=== PATIENT | female | born 1970 | race American Indian/Alaskan Native ===

== ENCOUNTER 2018-05-21 06:43 | Observation (INO) | payer OTHER ==
[2018-05-21 09:17] LABS: Bilirubin,Urine NEG (Negative); Blood,Urine NEG (Negative); Color,Urine Yellow (Yellow); Urobilinogen,Urine < 2.0 mg/dL (<2.0)
[2018-05-21 09:39] LABS: Basophils # (Auto) 0.1 K/mm3 (0.0-0.1); Basophils % (Auto) 1.3 % (0.0-1.8); Eosinophils # (Auto) 0.1 K/mm3 (0.0-0.4); Hematocrit 41.2 % (30.3-42.9); Hemoglobin 13.6 gm/dl (10.1-14.3); Lymphocytes # (Auto) 3.1 K/mm3 (1.2-5.4); Lymphocytes % (Auto) 43.6 % (13.4-35.0); Mean Corpuscular HGB Conc 33 % (30-34); Mean Corpuscular Hemoglobin 28 pg (28-32); Mean Corpuscular Volume 84 fl (79-97); Monocytes # (Auto) 0.5 K/mm3 (0.0-0.8); Platelet Count 209 K/mm3 (140-440); Red Blood Count 4.88 M/mm3 (3.65-5.03); Red Cell Distribution Width 13.7 % (13.2-15.2)
[2018-05-21 09:50] LABS: INR 0.87 (0.87-1.13)
[2018-05-21 09:51] LABS: Partial Thromboplastin Time 22.4 Sec. (24.2-36.6)
--- NOTE | 2018-05-21 10:01 | XRay Report ---
Single view chest: History: Chest pain. Findings: Normal cardiomediastinal silhouette the trachea is midline. No consolidation, pneumothorax or pleural effusion. Impression: No acute cardiopulmonary findings.
--- NOTE | 2018-05-21 10:18 | Emergency Department Report ---
ED Chest Pain HPI - General Chief Complaint: Chest Pain Stated Complaint: CP Time Seen by Provider: 05/21/18 08:58 Source: patient Mode of arrival: Ambulatory Limitations: No Limitations - History of Present Illness Initial Comments: This is a 47 year old type II diabetic female who presents for evaluation of anterior/substernal chest pressure. She states she has occasional shortness of breath and nausea but no vomiting. She denies cough. She is not currently having chest pain nor shortness of breath. She states that she has not been worked up for coronary artery disease in the past. She also has a history of hypertension. She does not smoke. She did not mention being out of her medication. She is not currently on a statin. MD Complaint: chest pain -: Gradual, days(s) Onset: during rest Pain Location: substernal Pain Radiation: none Quality: pressure Consistency: intermittent Improves With: nothing Worsens With: nothing re: nausea. denies: vomting, diaphoresis, dyspnea, sense of impending doom Other Symptoms: denies: cough, fever, syncope, rash, acid taste in mouth, leg swelling, palpitations, burping Treatments Prior to Arrival: none Aspirin use within the Past 7 Days: (0) No - Related Data On Oral Contraceptives: No Home Medications Medication Instructions Recorded Confirmed Last Taken Lisinopril [Zestril] 20 mg PO QDAY 02/04/16 02/04/16 Unknown metFORMIN [Glucophage] 1,000 mg PO BID 02/04/16 02/04/16 02/04/16 Amlodipine Besylate [Norvasc] 5 mg PO QDAY 05/21/18 05/21/18 Unknown glipiZIDE [Glipizide] 10 mg PO QDAY 05/21/18 05/21/18 Unknown Allergies Allergy/AdvReac Type Severity Reaction Status Date / Time No Known Allergies Allergy Verified 05/21/18 09:58 Heart Score - HEART Score History: Moderately suspicious EKG: Non-specific Age: 45-65 Risk factors: 1-2 risk factors Troponin: < normal limit HEART Score: 4 - Critical Actions Critical Actions: 4-6 pts:12-16.6% risk of adverse cardiac event. Should be admitted ED Review of Systems ROS: Stated complaint: CP Other details as noted in HPI Constitutional: denies: chills, fever Eyes: denies: eye pain, eye discharge, vision change ENT: denies: ear pain, throat pain Respiratory: shortness of breath. denies: cough, wheezing Cardiovascular: chest pain. denies: palpitations Endocrine: no symptoms reported Gastrointestinal: nausea. denies: abdominal pain, vomiting, diarrhea Genitourinary: denies: urgency, dysuria, discharge Musculoskeletal: denies: back pain, joint swelling, arthralgia Skin: denies: rash, lesions Neurological: denies: headache, weakness, paresthesias Psychiatric: denies: anxiety, depression Hematological/Lymphatic: denies: easy bleeding, easy bruising ED Past Medical Hx - Past Medical History Hx Hypertension: Yes Hx Diabetes: Yes Hx Asthma: Yes - Surgical History Past Surgical History?: Yes Additional Surgical History: partial hysterectomy-2004. x 3 - Social History Smoking Status: Never Smoker Substance Use Type: None - Medications Home Medications: Home Medications Medication Instructions Recorded Confirmed Last Taken Type Lisinopril [Zestril] 20 mg PO QDAY 02/04/16 02/04/16 Unknown History metFORMIN [Glucophage] 1,000 mg PO BID 02/04/16 02/04/16 02/04/16 History Amlodipine Besylate [Norvasc] 5 mg PO QDAY 05/21/18 05/21/18 Unknown History glipiZIDE [Glipizide] 10 mg PO QDAY 05/21/18 05/21/18 Unknown History ED Physical Exam - General Limitations: No Limitations General appearance: alert, in no apparent distress - Head Head exam: Present: atraumatic, normocephalic - Eye Eye exam: Present: normal appearance - ENT ENT exam: Present: mucous membranes moist, other (somewhat cushingoid type faces ) - Neck Neck exam: Present: normal inspection. Absent: tenderness, meningismus - Respiratory Respiratory exam: Present: normal lung sounds bilaterally. Absent: respiratory distress - Cardiovascular Cardiovascular Exam: Present: regular rate, normal rhythm. Absent: systolic murmur, diastolic murmur, rubs, gallop - GI/Abdominal GI/Abdominal exam: Present: soft, normal bowel sounds. Absent: distended, tenderness, guarding, rebound, rigid - Extremities Exam Extremities exam: Present: normal inspection, full ROM, normal capillary refill. Absent: tenderness, pedal edema, joint swelling, calf tenderness - Back Exam Back exam: Present: normal inspection - Neurological Exam Neurological exam: Present: alert, oriented X3, CN II-XII intact. Absent: motor sensory deficit - Psychiatric Psychiatric exam: Present: normal affect, normal mood - Skin Skin exam: Present: warm, dry, intact, normal color. Absent: rash ED Course Vital Signs 05/21/18 05/21/18 05/21/18 07:04 08:18 08:32 Temperature 98.5 F 98.1 F Pulse Rate 99 H 78 Respiratory 18 16 17 Rate Blood Pressure 121/81 Blood Pressure 143/87 [Right] O2 Sat by Pulse 98 98 Oximetry 05/21/18 05/21/18 09:43 10:00 Temperature Pulse Rate 77 78 Respiratory 11 L Rate Blood Pressure 131/80 Blood Pressure [Right] O2 Sat by Pulse 98 Oximetry - Reevaluation(s) Reevaluation #1: Discussed with Dr. Julio had admitted to telemetry in stable condition. 05/21/18 12:19 Reevaluation #2: Given fluids and IV insulin 05/21/18 12:21 KEV score - Kev Score Age > 65: (0) No Aspirin use within the Past 7 Days: (0) No 3 or more CAD Risk Factors: (1) Yes 2 or more Angina events in past 24 hrs: (0) No Known CAD with more than 50% Stenosis: (0) No Elevated Cardiac Markers: (0) No ST Deviation Greater than 0.5mm: (0) No KEV Score: 1 ED Medical Decision Making - Lab Data Result diagrams: 05/21/18 09:19 05/21/18 09:19 Laboratory Results - last 24 hr 05/21/18 05/21/18 05/21/18 09:19 09:19 Unknown WBC 7.1 RBC 4.88 Hgb 13.6 Hct 41.2 MCV 84 MCH 28 MCHC 33 RDW 13.7 Plt Count 209 Lymph % (Auto) 43.6 H [place] % (Auto) 7.0 Eos % (Auto) 2.0 Baso % (Auto) 1.3 Lymph # 3.1 [place] # 0.5 Eos # 0.1 Baso # 0.1 Seg Neutrophils % 46.1 Seg Neutrophils # 3.3 PT 12.2 INR 0.87 APTT 22.4 L D-Dimer 225.49 Urine Color Yellow Urine Turbidity Clear Urine pH 5.0 Ur Specific [place] 1.028 Urine Protein 30 mg/dl Urine Glucose (UA) >=500 Urine Ketones Tr Urine Blood Neg Urine Nitrite Neg Urine Bilirubin Neg Urine Urobilinogen < 2.0 Ur Leukocyte Esterase Sm Urine WBC (Auto) 4.0 Urine RBC (Auto) 4.0 U Epithel Cells (Auto) 2.0 - EKG Data -: EKG Interpreted by Me EKG shows normal: sinus rhythm, intervals, QRS complexes, ST-T waves - EKG Data When compared to previous EKG there are: no significant change Interpretation: other (left axis deviation) - Radiology Data Radiology results: report reviewed (chest x-ray no acute process) Critical care attestation.: If time is entered above; I have spent that time in minutes in the direct care of this critically ill patient, excluding procedure time. ED Disposition Clinical Impression: Chest pain Qualifiers: Chest pain type: unspecified Qualified Code(s): R07.9 - Chest pain, unspecified Hyperglycemia due to type 2 diabetes mellitus Qualifiers: Diabetes mellitus terminal superintendent insulin use: without terminal superintendent use Qualified Code(s ): E11.65 - Type 2 diabetes mellitus with hyperglycemia Disposition: 09 OP ADMIT IP TO THIS HOSP Is pt being admited?: Yes Does the pt Need Aspirin: Yes Condition: Stable Instructions: Chest Pain (ED), Diabetes Mellitus Type 2 in Adults (ED) Referrals: PRIMARY CARE, [Primary Care Provider] - 3-5 Days Time of Disposition: 12:21
[2018-05-21 10:35] LABS: Amphetamine Screen,Urine PRESUMPTIVE NEGATIVE; Benzodiazepines Screen,Urine PRESUMPTIVE NEGATIVE; Cannabinoid Screen,Urine PRESUMPTIVE NEGATIVE; Cocaine Screen,Urine PRESUMPTIVE NEGATIVE; Methadone Screen,Urine PRESUMPTIVE NEGATIVE; Opiate Screen,Urine PRESUMPTIVE NEGATIVE
[2018-05-21 10:37] LABS: Alanine Aminotransferase 20 units/L (7-56); Albumin 3.8 g/dL (3.9-5); BUN/Creatinine Ratio 21; Blood Urea Nitrogen 15 mg/dL (7-17); Calcium 9.7 mg/dL (8.4-10.2); Hemolysis Index 7
[2018-05-21 10:55] LABS: Bilirubin,Direct < 0.2 mg/dL (0-0.2)
[2018-05-21] MEDS ORDERED: NACL 0.9% 1000 ML 1,000 ML IV ONE (12:10)
[2018-05-21] MEDS ORDERED: HumuLIN R IV ONE (12:10)
[2018-05-21] MEDS ORDERED: BABY ASPIRIN PO ONE (12:21)
--- NOTE | 2018-05-22 01:27 | Event Note ---
Date: 05/21/18 See dictated history and physical in the reports Chest pain r/o NH
[2018-05-22] MEDS ORDERED: SODIUM CHLORIDE FLUSH SYRINGE 10 ML IV PRN (01:32)
[2018-05-22] MEDS ORDERED: PERCOCET 5/325 PO PRN (01:32)
[2018-05-22] MEDS ORDERED: TYLENOL PO PRN (01:32)
[2018-05-22] MEDS ORDERED: ZOFRAN IV PRN (01:32)
[2018-05-22] MEDS ORDERED: MORPHINE IV PRN (01:32)
--- NOTE | 2018-05-22 01:51 | History and Physical Report ---
CHIEF COMPLAINT: Left-sided chest pain for 3 days. HISTORY OF PRESENT ILLNESS: A 47-year-old female with type 2 diabetes, hypertension, who comes in for substernal chest pressure for the last 3 days. No nausea, no vomiting, no diaphoresis. No shortness of breath. No radiation. No recent travel. Pain is about 6 on a scale of 1-10, intermittent in nature. No exacerbating or relieving factors. No cough, no sputum. PAST MEDICAL HISTORY: Significant for hypertension, diabetes, or asthma. PAST SURGICAL HISTORY: Partial hysterectomy and x 3. SOCIAL HISTORY: She does not smoke. No alcohol, no recreational drugs. FAMILY HISTORY: Hypertension. HOME MEDICATIONS: Lisinopril 20 mg once a day, metformin 1000 mg twice a day, amlodipine 5 mg once a day, glipizide 10 mg once a day. REVIEW OF SYSTEMS: Significant for left-sided chest pain. No shortness of breath. Otherwise, review of systems negative. A 14-point review of systems done. PHYSICAL EXAMINATION: GENERAL: A middle-aged female, cooperative during examination. VITAL SIGNS: Vital signs significant for blood pressure of 159/88, pulse is 81, respiratory rate is 19, O2 sats are 98%. HEENT: Unremarkable. Pupils equal and reactive. NECK: Supple, no lymphadenopathy, no thyromegaly. LUNGS: Clear to auscultation and percussion. Good air entry. CARDIOVASCULAR: S1, S2 heard. No gallop, no murmur, no rub. Apical impulse in left fifth intercostal space and midclavicular line. ABDOMEN: Soft and benign. No hepatosplenomegaly. No guarding, no rigidity. Hernial orifices are normal. EXTREMITIES: Good pedal pulses. No pedal edema. CENTRAL NERVOUS SYSTEM: Alert and oriented x 4, nonfocal exam. SKIN: Normal. LABORATORY DATA: Significant for normal CBC. Sodium is 136, slightly low; bicarbonate is 21, slightly low. Glucose is 345. Albumin 3.8. Urine is normal. Drug screen is negative. EKG, normal sinus rhythm. EKG, left axis deviation, no significant ST-T wave changes. Chest x-ray, no acute process. ASSESSMENT AND PLAN: 1. Chest pain, rule out myocardial infarction, chest pain protocol. Lexiscan in the morning troponins. 2. Type 2 diabetes, continue oral hypoglycemics and coverage. 3. Hypertension, continue antihypertensives. 4. Hyperlipidemia, continue statins. 5. Deep venous thrombosis prophylaxis, Lovenox 40 mg subcutaneous daily. JOB# [id number] VSM/NTS
[2018-05-22] MEDS: ZESTRIL PO SCH ×2 (02:28→12:44)
[2018-05-22 04:03] LABS: Alanine Aminotransferase 21 units/L (7-56); Albumin 3.9 g/dL (3.9-5); BUN/Creatinine Ratio 20; Blood Urea Nitrogen 12 mg/dL (7-17); Calcium 8.7 mg/dL (8.4-10.2); Hemolysis Index 1
[2018-05-22] MEDS ORDERED: GLUCOTROL PO SCH (08:00)
[2018-05-22] MEDS ORDERED: LEXISCAN IV ONE ×2 (08:54→08:58)
[2018-05-22] MEDS ORDERED: SODIUM CHLORIDE FLUSH SYRINGE 10 ML IV SCH (10:00)
[2018-05-22] MEDS ORDERED: LOVENOX SUB-Q SCH (10:00)
[2018-05-22] MEDS ORDERED: PEPCID PO SCH (10:00)
[2018-05-22] MEDS ORDERED: NORVASC PO SCH (10:00)
[2018-05-22] MEDS: HumaLOG SUB-Q SCH ×3 (11:30→17:46)
[2018-05-22] MEDS ORDERED: DIFLUCAN PO ONE (11:52)
[2018-05-22] MEDS: GLUCOPHAGE PO SCH ×2 (12:38→17:47)
--- NOTE | 2018-05-22 14:36 | Discharge Summary ---
Providers - Providers Date of Admission: 05/21/18 12:49 Date of discharge: 05/22/18 Attending physician: MICHAEL ANDINO Primary care physician: TERRY VASQUEZ MD Hospitalization Condition: Stable Disposition: DC-01 TO HOME OR SELFCARE Time spent for discharge: 33 mintues Core Measure Documentation - Palliative Care Palliative Care/ Comfort Measures: Not Applicable - Core Measures Any of the following diagnoses?: none - VTE Discharge Requirements Deep Vein Thrombosis/Pulmonary Embolism Present on Admission: No Has pt received <5 days of overlap therapy or INR<2.0: No Anticoagulant overlap therapy prescribed at discharge: No Contraindication No Overlap Therapy order at DC: Not Indicated Exam - Constitutional Vitals: Temp Pulse Resp BP Pulse Ox 99.5 F 75 20 123/71 99 05/22/18 08:14 05/22/18 12:41 05/22/18 08:14 05/22/18 12:41 05/22/18 08:14 General appearance: Present: no acute distress - EENT Eyes: Present: PERRL, EOM intact ENT: hearing intact, clear oral mucosa - Neck Neck: Present: supple, normal ROM - Respiratory Respiratory: bilateral: CTA - Cardiovascular Rhythm: regular Heart Sounds: Present: S1 & S2 - Extremities Extremities: no ischemia Peripheral Pulses: within normal limits - Abdominal General gastrointestinal: Present: soft, non-tender, non-distended, normal bowel sounds - Integumentary Integumentary: Present: clear, warm, dry - Musculoskeletal Musculoskeletal: strength equal bilaterally - Psychiatric Psychiatric: appropriate mood/affect - Neurologic Neurologic: CNII-XII intact, no focal deficits Plan Activity: other (no strenous activity until cleared by pcp) Diet: low salt Follow up with: PRIMARY CARE, [Primary Care Provider] - 3-5 Days Prescriptions: Acetaminophen [Acetaminophen TAB] 650 mg PO Q4H PRN #30 tablet PRN Reason: Pain MILD(1-3)/Fever >100.5/LUCIA
[2018-05-22 18:25] VITALS: BP 123/78
--- NOTE | 2018-05-22 19:36 | Treadmill Report ---
THALLIUM STRESS TEST LEFT VENTRICLE: Left ventricle chamber size is within normal spread. Perfusion study demonstrates homogeneous uptake of the tracer in all segments. No perfusion defects identified. Gated analysis demonstrates normal left ventricular systolic function, ejection fraction greater than 70%. CONCLUSION: Normal myocardial perfusion study. JOB# [id number] CA/NTS
== END 2018-05-22 19:00 | disposition home or self-care (01) ==
LOC: ED 06:43 → 4A 12:49 → INTOOBSV 12:49 → 3A 18:00
PROVIDERS: ADMIT Internal Medicine; ATTEND Internal Medicine
DX: R07.89 Other chest pain (principal); E11.65 Type 2 diabetes mellitus with hyperglycemia; I10 Essential (primary) hypertension; E78.5 Hyperlipidemia, unspecified; J45.909 Unspecified asthma, uncomplicated; Z90.710 Acquired absence of both cervix and uterus; Z82.49 Family history of ischemic heart disease and other diseases of the circulatory system
CPT/HCPCS: 36415; 71045; 78452; 80048; 80053; 80074; 80307; 81001; 82962; 83036; 84484; 85025; 85379; 85610; 85730; 93005; 93010; 93017; 96361; 96372; 96374; 99285; A9502; G0378; J1650; J2785; J7030; J1815

== ENCOUNTER 2021-03-03 09:31 | Emergency (ER) | payer SELFPAY ==
--- NOTE | 2021-03-03 10:18 | XRay Report ---
CHEST 2 VIEWS INDICATION / CLINICAL INFORMATION: chest pain/ shortness of breath. FINDINGS: SUPPORT DEVICES: None. HEART / MEDIASTINUM: There is mild cardiomegaly. LUNGS / PLEURA: No significant pulmonary or pleural abnormality. No pneumothorax. ADDITIONAL FINDINGS: No significant additional findings. IMPRESSION: Mild cardiomegaly with slight increase in pulmonary vascularity but no evidence of cardiopulmonary ed latosha or pleural effusion is time. Signer Name: Jamey Deras MD Signed: 03/03/2021 10:13 AM Workstation Name: [id number]
[2021-03-03 10:34] LABS: Basophils # (Auto) 0.1 K/mm3 (0.0-0.1); Basophils % (Auto) 1.4 % (0.0-1.8); Eosinophils # (Auto) 0.2 K/mm3 (0.0-0.4); Eosinophils % (Auto) 3.4 % (0.0-4.3); Hematocrit 40.2 % (30.3-42.9); Hemoglobin 13.3 gm/dl (10.1-14.3); Lymphocytes # (Auto) 2.4 K/mm3 (1.2-5.4); Mean Corpuscular HGB Conc 33 % (30-34); Mean Corpuscular Volume 84 fl (79-97); Monocytes # (Auto) 0.4 K/mm3 (0.0-0.8); Monocytes % (Auto) 8.6 % (0.0-7.3); Platelet Count 221 K/mm3 (140-440); Red Blood Count 4.76 M/mm3 (3.65-5.03); Red Cell Distribution Width 13.9 % (13.2-15.2)
[2021-03-03 10:41] LABS: Alanine Aminotransferase 20 units/L (7-56); Albumin 3.9 g/dL (3.9-5); Blood Urea Nitrogen 8 mg/dL (7-17); Calcium 9.3 mg/dL (8.4-10.2); Hemolysis Index 9
[2021-03-03 10:59] LABS: BUN/Creatinine Ratio 13
[2021-03-03] MEDS ORDERED: ASPIRIN 81 MG TAB CHEW PO ONE ×2 (11:02→14:44)
--- NOTE | 2021-03-03 11:02 | Event Note ---
ED Screening Note Date of service: 03/03/21 Time: 10:59 ED Screening Note: 50-year-old female patient with history of BMI >30 kg, hypertension, and diabetes presents to the emergency department with complaints of chest pain radiating to her left arm starting yesterday and worsening this morning. Patient reports associated dyspnea and states she has been sweating more profusely than usual since the onset of her pain. Patient describes the pain as "feeling like I just cannot get comfortable." Patient admits she has been under a significant amount of stress lately due to her brother being ill. No known history of coronary artery disease. General: Awake, appropriately interactive, no acute distress. Neck: Supple. Full range of motion intact. Cardiovascular: Normal peripheral perfusion. Pulmonary: No respiratory distress. Patient is speaking normally without use of accessory muscles. Skin: No apparent rashes or lesions. Neurological: No facial asymmetry. Speech is clear. Follows commands. Patient is alert and oriented. Musculoskeletal: Moves all four extremities spontaneously with normal range of motion. Psych: Cooperative. Appropriate mood and affect. HEART score = moderate CXR ordered prior to MSE --> cardiomegaly w/ increased pulmonary vasculature --> BNP ordered Stat troponin was not ordered with initial set of labs --> ordered at this time EKG reviewed; no ST segment changes This initial assessment/diagnostic orders/clinical plan/treatment(s) is/are sub ject to change based on patients health status, clinical progression and re- assessment by fellow clinical providers in the ED. Further treatment and workup at subsequent clinical providers discretion. Patient/guardian urged not to elope from the ED as their condition may be serious if not clinically assessed and managed.
--- NOTE | 2021-03-03 14:48 | Electrocardiograph Report ---
[facility] Test Date: 2021-03-03 Test Time: 09:40:35 Pat Name: ROBERT PORTER Department: Room: Gender: F Fire Support Specialist: NEY ASHFORDB: 1970 Requested By: ED DOC Order Number: [id number] Reading MD: Cash Ceja Measurements Intervals [place] Rate: 69 P: 59 [place]: 203 QRS: -32 QRSD: 78 T: 75 QT: 370 QTc: 396 Interpretive Statements Sinus rhythm Borderline prolonged [place] interval Left axis deviation No previous ECG available for comparison Electronically Signed On 03-03-2021 14:48:35 EDT by Cash Ceja
--- NOTE | 2021-03-03 14:58 | Emergency Department Report ---
ED Chest Pain HPI - General Chief Complaint: Chest Pain Stated Complaint: CHEST PAIN/HEADACHE/PAIN LT ARM PUI?: No Time Seen by Provider: 03/03/21 14:20 Source: patient, RN notes reviewed, old records reviewed Mode of arrival: Ambulatory Limitations: No Limitations - History of Present Illness Initial Comments: The patient was evaluated in the emergency department for symptoms described in the history of present illness. He/she was evaluated in the context of the global COVID-19 pandemic, which necessitated consideration that the patient might be at risk for infection with the virus that causes COVID-19. Institutional protocols and algorithms that pertain to the evaluation of patients at risk for COVID-19 are in a state of rapid change based on information released by regulatory bodies including the CDC and federal and state organizations. These policies and algorithms were followed during the patient's care in the emergency department. Please note that these policies, procedures and recommendations changed on a rapid basis. During the history and physical, I am chaperoned by nurse Gwendolyn Alcantara. The patient is a 50-year-old female. She is not known to myself previously. She has a history of obesity, diabetes, hypertension, question obstructive sleep apnea. As per review of old medical charting, she has no left axis deviation with her EKG, this was documented in 2018. The patient presents to the ER today with complaint of nontraumatic left-sided chest pain, which radiates to the back, arms. There is nausea. There is no vomiting. There is diaphoresis. There is shortness of breath. The patient denies travel, surgery, leg pain, leg swelling, oral contraceptive use. She has a distant history of hysterectomy. No recent aspirin consumption. She is chest pain-free at this time. No recent cardiac risk ratification, her last stress test was in 2018. On review systems, endorses snoring quite a bit at night, sensation of poor rest during nighttime sleeping, she does not have a formal diagnosis of obstructive sleep apnea, and she has not had a formal sleep study performed. Complaint: chest pain -: Gradual, hour(s) Pain Location: substernal, left chest Pain Radiation: LUE Severity: moderate Quality: aching Consistency: intermittent Improves With: nothing Worsens With: nothing re: diaphoresis, dyspnea Treatments Prior to Arrival: none Aspirin use within the Past 7 Days: (0) No - Related Data On Oral Contraceptives: No Home Medications Medication Instructions Recorded Confirmed Last Taken lisinopriL [Zestril TAB] 40 mg PO Q12H 02/03/05/21/18 Unknown glipiZIDE [Glipizide] 10 mg PO QDAY 05/21/18 05/21/18 Unknown Previous Rx's Medication Instructions Recorded Last Taken Type Acetaminophen [Acetaminophen TAB] 650 mg PO Q4H PRN #30 tablet 05/22/18 Unknown Rx Amlodipine Besylate [Norvasc] 5 mg PO QDAY #30 03/03/21 Unknown Rx glipiZIDE [Glucotrol] 10 mg PO QDAY #30 tablet 03/03/21 Unknown Rx lisinopriL [Lisinopril] 20 mg PO DAILY #30 tablet 03/03/21 Unknown Rx metFORMIN [Glucophage] 1,000 mg PO BID #60 03/03/21 Unknown Rx Allergies Allergy/AdvReac Type Severity Reaction Status Date / Time No Known Allergies Allergy Verified 05/21/18 09:58 Heart Score - HEART Score History: Moderately suspicious EKG: Non-specific Age: 45-65 Risk factors: > 3 risk factors or hx of atherosclerotic disease Troponin: < normal limit HEART Score: 5 - EKG Read Time Time EKG Completed: 09:40 EKG Read Time: 09:50 - Critical Actions Critical Actions: 4-6 pts:12-16.6% risk of adverse cardiac event. Should be admitted ED Review of Systems ROS: Stated complaint: CHEST PAIN/HEADACHE/PAIN LT ARM Other details as noted in HPI Constitutional: other (Denies loss of taste and smell). denies: fever Eyes: denies: vision change ENT: denies: epistaxis Respiratory: shortness of breath Cardiovascular: chest pain Gastrointestinal: denies: vomiting, hematemesis, melena, hematochezia Genitourinary: denies: dysuria Musculoskeletal: denies: myalgia Neurological: denies: weakness Hematological/Lymphatic: denies: easy bleeding ED Past Medical Hx - Past Medical History Previous Medical History?: Yes Hx Hypertension: Yes Hx Diabetes: Yes Hx Arthritis: Yes (hands) Hx Asthma: Yes - Surgical History Past Surgical History?: Yes Additional Surgical History: partial hysterectomy-2003. x 3. hernia repair - Social History Smoking Status: Never Smoker Substance Use Type: None - Medications Home Medications: Home Medications Medication Instructions Recorded Confirmed Last Taken Type lisinopriL [Zestril TAB] 40 mg PO Q12H 02/04/16 05/21/18 Unknown History glipiZIDE [Glipizide] 10 mg PO QDAY 05/21/18 05/21/18 Unknown History Acetaminophen [Acetaminophen TAB] 650 mg PO Q4H PRN #30 tablet 05/22/18 Unknown Rx Amlodipine Besylate [Norvasc] 5 mg PO QDAY #30 03/03/21 Unknown Rx glipiZIDE [Glucotrol] 10 mg PO QDAY #30 tablet 03/03/21 Unknown Rx lisinopriL [Lisinopril] 20 mg PO DAILY #30 tablet 03/03/21 Unknown Rx metFORMIN [Glucophage] 1,000 mg PO BID #60 03/03/21 Unknown Rx ED Physical Exam - General Limitations: No Limitations General appearance: alert, in no apparent distress, obese - Head Head exam: Present: atraumatic, normocephalic - Eye Eye exam: Present: normal appearance, EOMI. Absent: nystagmus - ENT ENT exam: Present: normal exam, normal orophraynx, mucous membranes moist, normal external ear exam - Neck Neck exam: Present: normal inspection, full ROM. Absent: tenderness, meningismus - Respiratory Respiratory exam: Present: normal lung sounds bilaterally. Absent: respiratory distress, wheezes, rales, rhonchi, stridor, decreased breath sounds - Cardiovascular Cardiovascular Exam: Present: regular rate, normal rhythm, normal heart sounds. Absent: bradycardia, tachycardia, irregular rhythm, systolic murmur, diastolic murmur, rubs, gallop - GI/Abdominal GI/Abdominal exam: Present: soft. Absent: distended, tenderness, guarding, rebound, rigid, pulsatile mass - Extremities Exam Extremities exam: Present: normal inspection, full ROM, other (2+ pulses noted in the bilateral upper and lower extremities. There is no palpable cord. negative Homans sign. Muscular compartments are soft. The pelvis is stable.). Absent: pedal edema, calf tenderness - Back Exam Back exam: Present: normal inspection, full ROM. Absent: tenderness, CVA tenderness (R), CVA tenderness (L), paraspinal tenderness, vertebral tenderness - Neurological Exam Neurological exam: Present: alert, oriented X3, other (No facial droop. Tongue midline. Extraocular movements intact bilaterally. Facial sensation intact to light touch in V1, V2, V3 distribution bilaterally. 5 and a 5 strength in 4 extremities. Sensation intact to light touch in 4 extremities.). Absent: motor sensory deficit - Psychiatric Psychiatric exam: Present: normal affect, normal mood - Skin Skin exam: Present: warm, dry, intact, normal color. Absent: rash ED Course Vital Signs 03/03/21 09:34 Temperature 98.2 F Pulse Rate 72 Respiratory 18 Rate Blood Pressure 175/96 O2 Sat by Pulse 100 Oximetry - Reevaluation(s) Reevaluation #1: 03/03/21 18:47 EKG #2 unchanged from prior. Awaiting repeat vital signs. - Consultations Consultation #1: 03/03/21 18:10 cardiology [place] note reviewed and appreciated. i personally contacted the lift mechanic loss prevention agent Dr Lane Garcia and discussed the patients history, physical, pertinent EKG findings, and heart score. He offered and advised that it would be reasonable to admit this patient for observation. His group can see the patient in the morning. . Hospitalist updated. Patient updated, and amenable to this plan of care. We appreciate that stress test not available in this facility on this weekend. However, given heart score of 5, concerning symptoms, patient requires observation, in the case that patient develops major adverse cardiac event. SAMM score - Samm Score Age > 65: (0) No Aspirin use within the Past 7 Days: (0) No 3 or more CAD Risk Factors: (1) Yes 2 or more Angina events in past 24 hrs: (1) Yes Known CAD with more than 50% Stenosis: (0) No Elevated Cardiac Markers: (0) No ST Deviation Greater than 0.5mm: (0) No SAMM Score: 2 ED Medical Decision Making - Lab Data Result diagrams: 03/03/21 09:52 03/03/21 09:52 Vital Signs 03/03/21 09:34 Temperature 98.2 F Pulse Rate 72 Respiratory 18 Rate Blood Pressure 175/96 O2 Sat by Pulse 100 Oximetry Lab Results 03/03/21 03/03/21 03/03/21 Range/Units 09:52 09:52 11:01 WBC 5.2 (4.5-11.0) K/mm3 RBC 4.76 (3.65-5.03) M/mm3 Hgb 13.3 (10.1-14.3) gm/dl Hct 40.2 (30.3-42.9) % MCV 84 (79-97) fl MCH 28 (28-32) pg MCHC 33 (30-34) % RDW 13.9 (13.2-15.2) % Plt Count 221 (140-440) K/mm3 Lymph % (Auto) 47.0 H (13.4-35.0) % Stanley % (Auto) 8.6 H (0.0-7.3) % Eos % (Auto) 3.4 (0.0-4.3) % Baso % (Auto) 1.4 (0.0-1.8) % Lymph # (Auto) 2.4 (1.2-5.4) K/mm3 [place] # (Auto) 0.4 (0.0-0.8) K/mm3 Eos # (Auto) 0.2 (0.0-0.4) K/mm3 Baso # (Auto) 0.1 (0.0-0.1) K/mm3 Seg Neutrophils % 39.6 L (40.0-70.0) % Seg Neutrophils # 2.1 (1.8-7.7) K/mm3 Sodium 140 (137-145) mmol/L Potassium 3.8 (3.6-5.0) mmol/L Chloride 103.4 (98-107) mmol/L Carbon Dioxide 27 (22-30) mmol/L Anion Gap 13 mmol/L BUN 8 (7-17) mg/dL Creatinine 0.6 (0.6-1.2) mg/dL Estimated GFR > 60 ml/min BUN/Creatinine Ratio 13 % Glucose 185 H (65-100) mg/dL Calcium 9.3 (8.4-10.2) mg/dL Magnesium 1.90 (1.7-2.3) mg/dL Total Bilirubin 0.20 (0.1-1.2) mg/dL AST 14 (5-40) units/L ALT 20 (7-56) units/L Alkaline Phosphatase 103 (35-129) units/L Troponin T < 0.010 (0.00-0.029) ng/mL NT-Pro-B Natriuret Pep 17.53 (0-450) pg/mL Total Protein 7.4 (6.3-8.2) g/dL Albumin 3.9 (3.9-5) g/dL Albumin/Globulin Ratio 1.1 % 03/03/21 Range/Units 14:20 WBC (4.5-11.0) K/mm3 RBC (3.65-5.03) M/mm3 Hgb (10.1-14.3) gm/dl Hct (30.3-42.9) % MCV (79-97) fl MCH (28-32) pg MCHC (30-34) % RDW (13.2-15.2) % Plt Count (140-440) K/mm3 Lymph % (Auto) (13.4-35.0) % Stanley % (Auto) (0.0-7.3) % Eos % (Auto) (0.0-4.3) % Baso % (Auto) (0.0-1.8) % Lymph # (Auto) (1.2-5.4) K/mm3 Stanley # (Auto) (0.0-0.8) K/mm3 Eos # (Auto) (0.0-0.4) K/mm3 Baso # (Auto) (0.0-0.1) K/mm3 Seg Neutrophils % (40.0-70.0) % Seg Neutrophils # (1.8-7.7) K/mm3 Sodium (137-145) mmol/L Potassium (3.6-5.0) mmol/L Chloride (98-107) mmol/L Carbon Dioxide (22-30) mmol/L Anion Gap mmol/L BUN (7-17) mg/dL Creatinine (0.6-1.2) mg/dL Estimated GFR ml/min BUN/Creatinine Ratio % Glucose (65-100) mg/dL Calcium (8.4-10.2) mg/dL Magnesium (1.7-2.3) mg/dL Total Bilirubin (0.1-1.2) mg/dL AST (5-40) units/L ALT (7-56) units/L Alkaline Phosphatase (35-129) units/L Troponin T < 0.010 (0.00-0.029) ng/mL NT-Pro-B Natriuret Pep (0-450) pg/mL Total Protein (6.3-8.2) g/dL Albumin (3.9-5) g/dL Albumin/Globulin Ratio % - EKG Data -: EKG Interpreted by Me EKG shows normal: sinus rhythm - EKG Data 03/03/21 15:22 EKG interpreted this morning. Sinus rhythm, 69 bpm. Left axis deviation, left anterior fascicular block. Prolonged NH interval, first-degree AV block, low voltage in the lateral leads. As per review of prior medical documentation, patient has a left axis deviation since 2018. This EKG is abnormal, it is not consistent with STEMI - Radiology Data Radiology results: pending, report reviewed, image reviewed CHEST 2 VIEWS INDICATION / CLINICAL INFORMATION: chest pain/ shortness of breath. FINDINGS: SUPPORT DEVICES: None. HEART / MEDIASTINUM: There is mild cardiomegaly. LUNGS / PLEURA: No significant pulmonary or pleural abnormality. No pneumothorax. ADDITIONAL FINDINGS: No significant additional findings. IMPRESSION: Mild cardiomegaly with slight increase in pulmonary vascularity but no evidence of cardiopulmonary edema or pleural effusion is time. Signer Name: Jamey Deras MD Signed: 03/03/2021 9:13 AM Workstation Name: [id number] - Medical Decision Making Differential diagnosis, including but not limited to: GERD, gastritis, hiatal hernia, pneumonia, obstructive sleep apnea, acute coronary syndrome Assessment and plan: 50-year-old female, with chest pain, multiple cardiovascular risk factors, heart score of 5, not currently tachycardic, tach ypneic or hypoxic, who denies DVT or pulmonary embolism risk factors, low risk by Wells criteria for pulmonary embolism, PERC negative, who has equal pulses in the upper and lower extremities, no pulsatile abdominal mass, unremarkable mediastinum x-ray of the chest, very unlikely to be aortic disease, however, moderate risk for major adverse cardiac event as per heart score. She is chest pain-free at this time. She is amenable to admission to the medical service for cardiac risk stratification. Contacted [facility] cardiology on-call, Jeffrey Ayala. We will follow the patient in consultation, and make definitive recommendations for cardiac risk ratification. X-ray of the chest reviewed and appreciated, patient not floridly fluid overloaded, although, she is fairly obese, and I suspect that she has undiagnosed obstructive sleep apnea, which may predispose her to pulmonary hypertension, and right-sided heart failure. I will defer to the inpatient team to further follow this up. Hospital physician, Dr. Aguilar to admit patient to the medical service. Critical care attestation.: If time is entered above; I have spent that time in minutes in the direct care of this critically ill patient, excluding procedure time. ED Disposition Clinical Impression: Acute chest pain, Elevated blood pressure reading, Obesity Disposition: OP ADMIT IP TO THIS HOSP Is pt being admited?: Yes Does the pt Need Aspirin: No Condition: Good Instructions: Chest Pain (ED) Prescriptions: metFORMIN [Glucophage] 1,000 mg PO BID #60 glipiZIDE [Glucotrol] 10 mg PO QDAY #30 tablet lisinopriL [Lisinopril] 20 mg PO DAILY #30 tablet Amlodipine Besylate [Norvasc] 5 mg PO QDAY #30 Referrals: PRIMARY CARE, [Primary Care Provider] - 3-5 Days
[2021-03-03] MEDS ORDERED: NITROGLYCERIN 0.4 MG TAB SUBL SL PRN (15:18)
[2021-03-03] MEDS ORDERED: FUROSEMIDE 20 MG/2 ML INJ IV ONE ×3 (15:25→18:33)
[2021-03-03] MEDS ORDERED: amLODIPine 5 MG TAB PO ONE ×2 (15:25→18:31)
--- NOTE | 2021-03-03 15:56 | Consultation ---
History of Present Illness Consult date: 03/03/21 Requesting physician: YANET NEGRO Consult reason: chest pain History of present illness: This patient is a 50 year old female with a significant history of HTN, IDDM, Noncompliant with medications x several months. She is previously unknown to our practice. She presents to [facility] ER c/o chest pain x 2 days. Chest pain is described as midsternal radiating to the left arm, not reproducible with palpation. No provoking or palliative factors. Chest pain is currently resolved. Pt exercises regularly and denies chest pain with exertion, dyspnea, or malaise. Pt is tearful and emotional. She is prescribed Amlodipine for HTN, but states she has been out of medication for several months. Of note: She is the sister of Jhoan Saini, a patient under our care currently in [facility] CCU with poor prognosis. 12 Lead ECG is negative for STEMI. Troponins are negative x2. AMI ruled out. MPI Stress Test reviewed (05/22/2018): Negative ischemia. EF 70% Past History Past Medical History: diabetes, hypertension Past Surgical History: hernia repair, Other (Cesarian Section x 3) Social history: no significant social history Medications and Allergies Allergies Allergy/AdvReac Type Severity Reaction Status Date / Time No Known Allergies Allergy Verified 05/21/18 09:58 Home Medications Medication Instructions Recorded Confirmed Last Taken Type lisinopriL [Zestril TAB] 40 mg PO Q12H 02/04/16 05/21/18 Unknown History metFORMIN [Glucophage] 1,000 mg PO BID 02/04/16 05/21/18 02/04/16 History Amlodipine Besylate [Norvasc] 5 mg PO QDAY 05/21/18 05/21/18 Unknown History glipiZIDE [Glipizide] 10 mg PO QDAY 05/21/18 05/21/18 Unknown History Acetaminophen [Acetaminophen TAB] 650 mg PO Q4H PRN #30 tablet 05/22/18 Unknown Rx Active Meds: Active Medications Nitroglycerin (Nitroglycerin 0.4 Mg Tab Subl) 0.4 mg SL .Q5MIN PRN PRN Reason: Chest Pain Review of Systems Constitutional: no weight loss, no weight gain, no fever, no chills, no sweats Ears, nose, mouth and throat: no ear pain, no ear discharge, no nasal congestion, no nasal discharge, no sinus pressure Cardiovascular: chest pain, no orthopnea, no palpitations, no rapid/irregular heart beat, no edema, no syncope, no lightheadedness, no shortness of breath Respiratory: no cough, no hemoptysis, no shortness of breath, no dyspnea on exertion Gastrointestinal: no abdominal pain, no nausea, no vomiting, no diarrhea, no constipation Genitourinary Female: no pelvic pain, no flank pain Musculoskeletal: no neck stiffness, no neck pain, no shooting arm pain, no arm numbness/tingling, no low back pain, no shooting leg pain, no leg numbness/tingling Integumentary: no rash, no pruritis, no redness, no sores, no wounds Neurological: no head injury, no paralysis, no weakness, no parathesias, no numbness, no tingling, no seizures, no syncope Psychiatric: sadness/tearfullness, no anxiety Endocrine: no cold intolerance, no heat intolerance Hematologic/Lymphatic: no easy bruising, no easy bleeding Allergic/Immunologic: no urticaria Physical Examination Last Vital Signs Temp 98.2 F 03/03/21 09:34 Pulse 72 03/03/21 09:34 Resp 18 03/03/21 09:34 BP 175/96 03/03/21 09:34 Pulse Ox 100 03/03/21 09:34 General appearance: mild distress HEENT: Positive: PERRL, Normocephaly, Mucus Membranes Moist Neck: Positive: neck supple, trachea midline Cardiac: Positive: Reg Rate and Rhythm, S1/S2 Lungs: Positive: clear to auscultation, Normal Breath Sounds Neuro: Positive: Grossly Intact Abdomen: Positive: Unremarkable, Soft, Active Bowel Sounds Skin: Negative: Rash, Wound Musculoskeletal: No Pain Extremities: Present: upper extr. pulses, lower extr. pulses. Absent: edema Results 03/03/21 09:52 03/03/21 09:52 Cardiac Enzymes 03/03/21 Range/Units 09:52 AST 14 (5-40) units/L CBC 03/03/21 Range/Units 09:52 WBC 5.2 (4.5-11.0) K/mm3 RBC 4.76 (3.65-5.03) M/mm3 Hgb 13.3 (10.1-14.3) gm/dl Hct 40.2 (30.3-42.9) % Plt Count 221 (140-440) K/mm3 Lymph # (Auto) 2.4 (1.2-5.4) K/mm3 [place] # (Auto) 0.4 (0.0-0.8) K/mm3 Eos # (Auto) 0.2 (0.0-0.4) K/mm3 Baso # (Auto) 0.1 (0.0-0.1) K/mm3 Comprehensive Metabolic Panel 03/03/21 Range/Units 09:52 Sodium 140 (137-145) mmol/L Potassium 3.8 (3.6-5.0) mmol/L Chloride 103.4 (98-107) mmol/L Carbon Dioxide 27 (22-30) mmol/L BUN 8 (7-17) mg/dL Creatinine 0.6 (0.6-1.2) mg/dL Glucose 185 H (65-100) mg/dL Calcium 9.3 (8.4-10.2) mg/dL AST 14 (5-40) units/L ALT 20 (7-56) units/L Alkaline Phosphatase 103 (35-129) units/L Total Protein 7.4 (6.3-8.2) g/dL Albumin 3.9 (3.9-5) g/dL - Imaging and Cardiology EKG: report reviewed, image reviewed - EKG Interpretation EKG: sinus rhythm EKG interpretations - EKG Sinus rhythms and dysrhythmias: sinus rhythm Assessment and Plan Chest Pain is atypical and currently resolved. 12 Lead ECG is unremarkable. Troponins are negative x 2. AMI ruled out. Recommend stress testing to further stratify chest pain. MPI Stress Test reviewed (05/22/2018): Negative ischemia. EF 70% Uncontrolled HTN. Optimize antihypertensive regimen. Pt is prescribed Amlodipine, but has been out of medications x several months. Initiate Amlodipine PO 5mg Daily. Uncontrolled Diabetes. Management per primary. Medical Noncompliance. Discussed importance of medication compliance with the patient. She verbalizes understanding. CXR reviewed. Negative for acute process. Echo is pending. Lexiscan is pending. Pt is being admitted for observation per primary team. Will follow. Ischemic w/u may be pursued in out patient setting from cardiology standpoint. Of note: If patient is discharged, she has scheduled outpatient f/u with our office. f/u with outpatient MPI stress testing in our [place] office on 03/06/21 10:45. f/u with Dr Lane Garcia in our [place] office on 03/13/21 at 3:15. [phone] This patient was seen with Dr Lane Garcia, who agrees with this assessment and plan. - Patient Problems (1) Chest pain Current Visit: Yes Status: Acute Qualifiers: Chest pain type: unspecified Qualified Code(s): R07.9 - Chest pain, unspecified (2) Medical non-compliance Current Visit: Yes Status: Chronic (3) Uncontrolled hypertension Current Visit: Yes Status: Chronic (4) Uncontrolled diabetes mellitus Current Visit: Yes Status: Chronic
[2021-03-03 19:02] VITALS: BP 168/87
[2021-03-04] MEDS ORDERED: ASPIRIN 81 MG TAB CHEW PO SCH (10:00)
[2021-03-04] MEDS ORDERED: amLODIPine 5 MG TAB PO SCH (10:00)
== END 2021-03-03 19:25 | disposition admitted as inpatient to this hospital (09) ==
LOC: ED 09:31
DX: E66.9 Obesity, unspecified (principal); R03.0 Elevated blood-pressure reading, without diagnosis of hypertension; R07.89 Other chest pain; I10 Essential (primary) hypertension; E11.9 Type 2 diabetes mellitus without complications; J45.909 Unspecified asthma, uncomplicated; M19.042 Primary osteoarthritis, left hand; M19.041 Primary osteoarthritis, right hand; Z90.710 Acquired absence of both cervix and uterus; Z98.890 Other specified postprocedural states; Z79.899 Other long term (current) drug therapy; Z68.33 Body mass index [BMI] 33.0-33.9, adult
CPT/HCPCS: 36415; 71046; 80053; 83735; 83880; 84484; 85025; 93005; 96374; 99284; J1940